=== PATIENT | female | born 1980 | race Caucasian/White ===

== ENCOUNTER 2024-11-25 10:55 | Outpatient (CLI) | payer SELFPAY ==
[2024-11-25 12:21] LABS: Thyroid Stimulating Hormone 0.991 uIU/mL (0.465-4.680)
--- OUTSIDE RECORDS SUMMARY | 2024-11-25 12:35 | XMS_ITS | Encounter Summary ---
Author Organization [facility] Address [address] [place] [address] Care Team Providers Care District Scout Executive Name Role Phone Haresh Villaseñor MD Primary Care Provider [phone] Encounter Details Date Type Department Care Team (Late st Contact Info) Description 04/25/2005 Outpatient Historical [facility]'s [facility] Medical [place] [address] [place] [address] Lexi Velarde MD [address] [place] [address] Social History Tobacco Use Types Packs/Day Years Used Date Smoking Tobacco: Never Assessed Comments Unknown Sex and Gender Information Value Date Recorded Sex Assigned at Not on file 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
--- OUTSIDE RECORDS SUMMARY | 2024-11-25 12:35 | XMS_ITS | Referral Summary ---
Author Organization [address] Address [address] [place] [address] Care Team Providers Care Document Photographer Name Role Phone Unknown, Ciara Primary Care Provider Unavail able Allergies No known active allergies Medications hydrOXYzine (VISTARIL) 25 mg capsuleIndicati ons:Hives of unknown origin Take 1 capsule (25 mg total) by mouth 3 (three) times a day as needed for itching for up to 5 days 15 capsule 05/11/2023 Active Active Problems No known active problems Social History Tobacco Use Types Packs/Day Years Used Date Smoking Tobacco: Never Assessed Comments Unknown Sex and Gender Information Value Date Recorded Sex Assigned at Not on file Legal Sex Female 10:27 AM CDT Gender Identity Not on file Sexual Orientation Not on file Last Filed Vital Signs Vital Sign Reading Time Taken Comments Blood Pressure 118/78 05/11/2023 11:04 AM CDT Pulse 72 05/11/2023 11:04 AM CDT Temperature 36.7 C (98 F) 05/11/2023 11:04 AM CDT Respiratory Rate - - Oxygen Saturation 100% 05/11/2023 11: 04 AM CDT Inhaled Oxygen Concentration - - Weight 76.6 kg (168 lb 12.8 oz) 023 11:04 AM CDT Height 165.1 cm (5' 5 ) 05/11/2023 11:0 4 AM CDT Body Mass Index 28.09 05/11/2023 11:04 AM CDT Plan of Treatment Not on file Care Teams Document Photographer Relationship Specialty Start Date End Date UnknownCiara PCP - General 05/11/23
--- OUTSIDE RECORDS SUMMARY | 2024-11-25 12:35 | XMS_ITS | Encounter Summary ---
Author Organization [facility] Address [address] [place] [address] Care Team Providers Care Visiting Housekeeper Name Role Phone Haresh Villaseñor MD Primary Care Provider [phone] Encounter Details Date Type Department Care Team (Late st Contact Info) Description 08/01/2004 Outpatient Historical [facility]'s [facility] Medical [place] [address] [place] [address] Lexi Velarde MD [address] [place] [address] Social History Tobacco Use Types Packs/Day Years Used Date Smoking Tobacco: Never Assessed Comments Unknown Sex and Gender Information Value Date Recorded Sex Assigned at Not on file 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
--- OUTSIDE RECORDS SUMMARY | 2024-11-25 12:35 | XMS_ITS | Encounter Summary ---
Author Organization [facility] Address [address] [place] [address] Care Team Providers Care Top Lift Compressor Name Role Phone Haresh Villaseñor MD Primary Care Provider [phone] Encounter Details Date Type Department Care Team (Late st Contact Info) Description 04/30/2006 Outpatient Historical [facility]'s [facility] Medical [place] [address] [address] Lexi Velarde MD [address] [address] Social History Tobacco Use Types Packs/Day Years Used Date Smoking Tobacco: Never Assessed Comments Unknown Sex and Gender Information Value Date Recorded Sex Assigned at Not on file Legal Sex Female 4:04 AM MANAGEMENT ASSOCIATE Gender Identity Not on file Sexual Orientation Not on file documented as of this encounter Plan of Treatment Not on file documented as of this encounter Visit Diagnoses Not on filedocumented in this encounter Care Teams Top Lift Compressor Relationship Specialty Start Date End Date Haresh Villaseñor MD [address] [place] [phone] PCP - General 09/09/15 documented as of this encounter
--- OUTSIDE RECORDS SUMMARY | 2024-11-25 12:35 | XMS_ITS | Encounter Summary ---
Author Organization [facility] Address [address] [place] [address] Care Team Providers Care Child Welfare Director Name Role Phone Haresh Villaseñor MD Primary Care Provider [phone] Encounter Details Date Type Department Care Team (Late st Contact Info) Description 11/19/2006 Outpatient Historical [facility] Medical [place] [address] [address] Lexi Velarde MD [address] [address] Social History Tobacco Use Types Packs/Day Years Used Date Smoking Tobacco: Never Assessed Comments Unknown Sex and Gender Information Value Date Recorded Sex Assigned at Not on file 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
--- OUTSIDE RECORDS SUMMARY | 2024-11-25 12:35 | XMS_ITS | Patient Health Summary ---
Author Organization [facility] Address [address] [place] [place] [address] Care Team Providers Care Farm Boss Name Role Phone Haresh Villaseñor MD Primary Care Provider [phone] Note from [facility][note 3],non-owned Affiliates and Associated Physician Practices is amultiple site organization consisting of ambulatory clinics and hospital sitesin [place], [place] and [place]. This disclosure is being madepursuant to the Care Everywhere program and may not contain all information available regarding this patient. Last updated 18.[facility] Allergies No known active allergies Medications Be aware that medications may not be up to date on this document. Always verify current medications with the patient. No known medications Social History Tobacco Use Types Packs/Day Years Used Date Smoking Tobacco: Never Sex and Gender Information Value Date Recorded Sex Assigned at Not on file Gender Identity Not on file Sexual Orientation Not on file Procedures * SKIN TEST PPD - POINT OF CARE(Performed 01/22/2017) Performed for PPD screening test Results * SKIN TEST PPD - POINT OF CARE (01/22/2017 12:05 PM CDT) PPD neg MISCELLANEOUS SAMPLE S / Unknown 01/22/2017 12:05 PM CDT Prabhakar Nice SALESPERSON FLORIST SUPPLIES-ESL TEACHER LAB - POINT OF CARE ORDERABLES Care Teams Farm Boss Relationship Specialty Start Date End Date Haresh Villaseñor MD [address] [place] [address] PCP - General Rheumatology 01/22/17
--- OUTSIDE RECORDS SUMMARY | 2024-11-25 12:35 | XMS_ITS | Encounter Summary ---
Author Organization [facility] Address [address] [place] [address] Care Team Providers Care Ham Doctor Name Role Phone Haresh Villaseñor MD Primary Care Provider [phone] Encounter Details Date Type Department Care Team (Late st Contact Info) Description 05/06/2007 Outpatient Historical [facility] Medical [place] [address] [place] [address] Lexi Velarde MD [address] [place] [address] Social History Tobacco Use Types Packs/Day Years Used Date Smoking Tobacco: Never Assessed Comments Unknown Sex and Gender Information Value Date Recorded Sex Assigned at Not on file Legal Sex Female 4: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
--- OUTSIDE RECORDS SUMMARY | 2024-11-25 12:35 | XMS_ITS | Clinical Summary ---
Author Organization [address] Address [address] [place] [address] Care Team Providers Care Precision Assembler Bench Name Role Phone Unknown, Notinfile Primary Care Provider Unavail able Allergies No [...] on file Sexual Orientation Not on file Obstetrics History Last Filed Vital Signs Vital Sign Reading [...] 05/11/2023 11:04 AM CDT Plan of Treatment Health Maintenance Due Date Last Done Comments Breast Cancer Screening-Mammogram 1978 Cervical Cancer Screening 1978 Colon Cancer Screening-Colonoscopy 1978 Depression Screening 1978 Hepatitis C Screening 1978 Hepatitis B Screening 1996 Regular Well Visit/Exam 18-64 1996 DTaP/Tdap/Td Vaccine (3 - Td or Tdap) 07/24/2021 07/24/2011, 05/08/2011 Covid-19 Vaccine (4 - 2023-2 5 season) 2024 07/30/2021, 01/13/2021, 12/16/2020 Influenza Vaccine (#1) 2024 HPV Vaccines Aged Out No longer eligi ble based on patient's age to complete this topic Pneumococcal vaccine <65 Aged Out No longer eligible based on patient's age to complete this topic Care Teams Precision Assembler Bench Relationship Specialty Start Date End Date Unknown, Notinfile PCP - General 05/11/23
--- OUTSIDE RECORDS SUMMARY | 2024-11-25 12:35 | XMS_ITS | Encounter Summary ---
Author Organization [facility] Address [address] [place] [address] Care Team Providers Care Skinning Machine Feeder Name Role Phone Haresh Villaseñor MD Primary Care Provider [phone] Encounter Details Date Type Department Care Team (Late st Contact Info) Description 08/08/2006 Outpatient Historical [facility] Medical [place] [address] [address] Lexi Velarde MD [address] [address] Social History Tobacco Use Types Packs/Day Years Used Date Smoking Tobacco: Never Assessed Comments Unknown Sex and Gender Information Value Date Recorded Sex Assigned at Not on file Legal Sex Female 4:04 AM VIDEOTAPE EDITOR Gender Identity Not on file Sexual Orientation Not on file documented as of this encounter Plan of Treatment Not on file documented as of this encounter Visit Diagnoses Not on filedocumented in this encounter Care Teams Skinning Machine Feeder Relationship Specialty Start Date End Date Haresh Villaseñor MD [address] [place] [phone] PCP - General 09/09/15 documented as of this encounter
--- OUTSIDE RECORDS SUMMARY | 2024-11-25 12:35 | XMS_ITS | Clinical Summary ---
Author Organization [facility] Address [address] [place] [address] Care Team Providers Care Blanchard Grinder Operator Name Role Phone Unavailable Primary Care Provider Unavailabl e Social History Tobacco Use Types Packs/Day Years Used Date Smoking Tobacco: Never Assessed Comments Unknown Sex and Gender Information Value Date Recorded Sex Assigned at Not on file Legal Sex Female 8:15 PM CDT Gender Identity Not on file Sexual Orientation Not on file Plan of Treatment Health Maintenance Due Date Last Done Comments Cervical Cancer Screening Pa p Smear (Age 30 to 64) Every 3 Years 1978 Colorectal Cancer Screening Colonoscopy (10 Years) 1978 Annual Physical 1981 Hepatitis C 1996 DTaP, Tdap and Td Vaccines ( 1 - Tdap) 1997 Hepatitis B Vaccines (1 of 3 - 19+ 3-dose series) 1997 Cervical Cancer Screening Pa p with HPV Testing (Age 30 to 64) Every 5 Years 2008 Cervical Cancer Screening with HPV 2008 Mammogram Screening 2018 COVID-19 Vaccine (2023-2 5 season) 2024 Influenza Adult (#1) 2024 HPV Vaccines Aged Out No longer eligi ble based on patient's age to complete this topic Meningococcal B Vaccine Aged Out No l onger eligible based on patient's age to complete this topic Meningococcal Vaccine Aged Out No lizz cris eligible based on patient's age to complete this topic Pneumococcal Vaccine: Pediat rics (0 to 5 Years) and At-Risk Patients (6 to 64 Years) Aged Out No longer eligible b ased on patient's age to complete this topic RSV Immunizations Under 20 Months Aged Out No longer eligible based on patient's age to complete this topic
--- OUTSIDE RECORDS SUMMARY | 2024-11-25 12:35 | XMS_ITS | Encounter Summary ---
Author Organization [facility] Address [address] [place] [address] Care Team Providers Care Regional Education Coordinator Name Role Phone Haresh Villaseñor MD Primary Care Provider [phone] Encounter Details Date Type Department Care Team (Late st Contact Info) Description 01/22/2007 Outpatient Historical [facility]'s [facility] Medical [place] [address] [place] [address] Lexi Velarde MD [address] [place] [address] Social History Tobacco Use Types Packs/Day Years Used Date Smoking Tobacco: Never Assessed Comments Unknown Sex and Gender Information Value Date Recorded Sex Assigned at Not on file Legal Sex Female 4: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
--- OUTSIDE RECORDS SUMMARY | 2024-11-25 12:35 | XMS_ITS | Clinical Summary ---
Author Organization [facility] Address [address] [place] [address] Care Team Providers Care Sheetmetal Trades Worker Name Role Phone Haresh Villaseñor MD Primary Care Provider [phone] Source Comments [facility],non-owned Affiliates and Associated Physician Practices is amultiple site organization consisting of ambulatory clinics and hospital sitesin [place], [place], [place] and [place]. This disclosure is being madepursuant to the Care Everywhere program and may not contain all information available regarding this patient. Last updated 18.[facility] Allergies No known active allergies Medications Be [...] Health Maintenance Due Date Last Done Comments COLOGUARD (AGES 45-75) - COL ON CA SCREENING 1978 COLON MONITORING 1978 COLONOSCOPY - COLON CA SCREENING 1978 CT COLONOGRAPHY - COLON CA SCREENING 1978 Colorectal Cancer Screening 1978 FIT - COLON CA SCREENING 1978 FLEX SIG - COLON CA SCREENING 1978 LIPID TESTING 1978 MAMMOGRAM 1978 PAP SMEAR 1978 HIV SCREENING 1993 HEPATITIS C SCREENING 07/29/1996 DTAP/TDAP/TD VACCINES (1 - Tdap) 1997 HEPATITIS B VACCINE (1 of 3 - 19+ 3-dose series) 1997 COVID-19 VACCINE (2023-2 5 season) 2024 INFLUENZA VACCINE (#1) 2024 DEPRESSION SCREENING 09/23/2024 ZOSTER VACCINE (1 of 2) 2028 HIB VACCINE Aged Out No longer eligi ble based on patient's age to complete this topic HPV VACCINE Aged Out No longer eligi ble based on patient's age to complete this topic MENINGOCOCCAL (Group B) VACCINE Aged Out No longer eligible based on patient's age to complete this topic MENINGOCOCCAL VACCINE Aged Out No lizz cris eligible based on patient's age to complete this topic PNEUMOCOCCAL VACCINE Aged Out No long er eligible based on patient's age to complete this topic Care Teams Sheetmetal Trades Worker Relationship Specialty Start Date End Date Haresh Villaseñor MD [address] [place] [address] PCP - General Rheumatology 01/22/17
--- OUTSIDE RECORDS SUMMARY | 2024-11-25 12:35 | XMS_ITS | Encounter Summary ---
Author Organization [facility] Address [address] [place] [address] Care Team Providers Care Clinical Coder Name Role Phone Haresh Villaseñor MD Primary Care Provider [phone] Encounter Details Date Type Department Care Team (Late st Contact Info) Description 05/28/2006 Outpatient Historical [facility]'s 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
--- OUTSIDE RECORDS SUMMARY | 2024-11-25 12:35 | XMS_ITS | Clinical Summary ---
Author Organization [facility] Address [address] [place] [address] Phone Care Team Providers Care Special Distribution Clerk Name Role Phone Haresh Villaseñor MD Primary Care Provider [phone] Allergies No known active allergies Medications MULTIVITAMIN ORAL Take by mouth daily. Active ACETAMINOPHEN (TYLENOL ORAL) Take by mouth. Active escitalopram oxalate (LEXAPRO) 10 mg tablet TAKE ONE TABLET BY MOUTH ONCE DAILY 30 Tablet 3 07/11/2018 Active 10/12, 28, 1 mg-20 mcg (21)/75 mg (7) tablet TAKE 1 TABLET BY MOUTH EVERY DAY 28 Tablet 07/11/2021 Active Active Problems Problem Noted Date Diagnosed Date FH: colon cancer 09/01/2015 S/P LEEP 09/02/2011 Resolved Problems Problem Noted Date Diagnosed Date Resolved Date FAVD 5.22 02/12/2012 07/22/2013 labor GBS-, A+ 09/02/2011 03/25/2012 state, incidental 06/20/2011 0 12/05/2011 Overview (06/20/2011): Some cramping. History of LEEP procedure. Immunizations Immunization Administration Dates Next Due (TDVAX)(7 YRS UP) TETANUS AN D DIPHTHERIA TOXOIDS, ADSORBED (2 LF OF TETANUS TOXOID AND 2 LF OF DIPHTHERIA TOXOID), 0.5ML (PF), IM 07/24/2011 Family History Medical History Relation Name Comments Other Father obesity Other Maternal Grandfather hypogly cemia Stroke Maternal Grandmother Cancer Mother Heart Disease Mother obesity Hypertension Mother Lung Cancer Mother Diabetes Paternal Grandmother Relation Name Status Comments Father Maternal Grandfather Maternal Grandmother Mother Paternal Grandmother Social History Tobacco Use Types Packs/Day Years Used Date Smoking Tobacco: Never Smokeless Tobacco: Never Alcohol Use Standard Drinks/Week Comments Yes 0 (1 standard drink = 0.6 oz pur e alcohol) rarely Comments No Sex and Gender Information Value Date Recorded Sex Assigned at Not on file Legal Sex Female 4:04 AM MAMMALOGY TEACHER Gender Identity Not on file Sexual Orientation Not on file Occupation Industry Job Start Date Job End Date Not on file Not on file Not on file Not on file Last Filed Vital Signs Vital Sign Reading Time Taken Comments Blood Pressure 124/79 04/13/2020 11:13 AM CDT Pulse 69 02/13/2019 9:53 AM CDT Temperature 36.7 C (98 F) 02/14/2012 7:45 AM CDT Respiratory Rate 18 02/14/2012 7:45 AM CDT Oxygen Saturation 96% 02/12/2012 3:16 AM CDT Inhaled Oxygen Concentration - - Weight 72.6 kg (160 lb) 04/13/2020 11:13 AM CDT Height 162.6 cm (5' 4 ) 04/13/2020 11:13 AM CDT Body Mass Index 27.46 04/13/2020 11:13 AM CDT Plan of Treatment Health Maintenance Due Date Last Done Comments HEPATITIS B VACCINES (1 of 3 - 19+ 3-dose series) 1997 DTAP/TDAP/TD VACCINES (1 - Tdap) 07/25/2011 07/24/2011 BREAST CANCER SCREENING 12/10/2018 12/10/2017, 08/06 CERVICAL CANCER SCREENING 04/13/20232019, 02/13/2019, 10/23/2017, Additional history exists COLORECTAL SCREENING 2023 Colorectal Cancer Screening 2023 FIT-DNA Q 3 years 2023 FIT/FOBT Q 1 year 2023 Flex Sig/CT Colonography Q 5 years 2023 INFLUENZA VACCINE (#1) 2024 HPV VACCINES Aged Out No longer eligi ble based on patient's age to complete this topic PNEUMOCOCCAL VACCINE 0-49 YEARS Aged Out No longer eligible based on patient's age to complete this topic Procedures Procedure Name Priority Date/Time Associated Diagnosis Comments CERV/VAG CYTO AGE BASED SCREEN PAP Routine 04/13/2020 12:15 PM CDT Well woman exam with routine gynecological exam Screening for malignant neoplasm of cervix Special screening examination for human papillomavirus (HPV) MAMMO SCREEN BILAT W OR WO CAD Routine 12/10/2017 3:15 PM CDT Well woman exam with routine gynecological exam from Last 3 Months or Most Recently Relevant to Health Maintenance Results * CERV/VAG CYTO AGE BASED SCREEN PAP (04/13/2020 12:15 PM CDT) COMMENT (PAP): SEE COMMENT 0 11:13 AM CDT [facility] Comment: This order for age-based cervical cancer and STI screening follows ACOG guidelines(PB 168, 140, BIZ347). See individual assays for performing site location. CLINICAL INFORMATION Oral contraceptives 04/19/2020 11:13 AM CDT [facility] LAST MENSTRUAL PERIOD INFORMATION NOT PROVIDED 04/19/2020 11:13 AM CDT [facility] PREV PAP: [id number] NIL/NEG HPV 04/19/2020 11:13 AM CDT [facility] PREV BX: INFORMATION NOT PROVIDED 04/19/2020 11:13 AM CDT [facility] SOURCE Endocervix 04/19/2020 11:13 AM CDT [facility] ADEQUACY: SEE COMMENT 04/19/2020 11:13 AM CDT [facility] Comment: Satisfactory for evaluation. Endocervical/transformation zone component present. Age and/or menstrual status not provided PAP INTERP Negative for intraepithelial lesion or malignancy. 04/19/2020 11:13 AM CDT [facility] COMMENT This Pap test has been evaluated with computer assisted technology. 04/19/2020 11:13 AM CDT [facility] ADJUNCT FACULTY FOR MEDICAL TERMINOLOGY: SEE COMMENT 2019 11:13 AM CDT [facility] Comment: KORI JEFFRIES(ASCP) CT screening location: [place] [address] [place] [address] EXPLANATORY NOTE SEE COMMENT 020 11:13 AM CDT [facility] Comment: EXPLANATORY NOTE: The Pap is a screening test for cervical cancer. It is not a diagnostic test and is subject to false negative and false positive results. It is most reliable when a satisfactory sample, regularly obtained, is submitted with relevant clinical findings and history, and when the Pap result is evaluated along with historic and current clinical information. HPV E6/E7 Not Detected Not Detected 04/19/2020 11:13 AM CDT [facility] Comment: This test was performed using the APTIMA HPV Assay ([employer] This assay detects E6/E7 viral messenger RNA (mRNA) from 14 high-risk HPV types (16,18,31,33,35,39,45,51,52,56,58,59,66,68). The analytical performance characteristics of this assay have been determined by [employer]. The modifications have not been cleared or approved by the FDA. This assay has been validated pursuant to the CLIA regulations and is used for clinical purposes. Genital SWAB OF ENDOCERVIX / Unknown Collection / Unknown 04/13/2020 12:15 PM CDT 04/13/2020 5:01 PM CDT Narrative [facility] - 04/19/2020 11:13 AM CDT Performing Organization Information: Site ID: [id number] Name: [facility] Address: [address] [place] [address] Director: Alvin Cook D.O., MPH Site ID: [id number] Name: [facility] Address: [address] [address] Director: Asuncion Santoyo Viry Vance NP PATHOLOGY/CYTOLOGY ORDERAB LES Final Result [facility] [phone] * MAMMO SCREEN BILAT W OR WO CAD (12/10/2017 3:15 PM CDT) Anatomical Region Laterality Modality Breast Bilateral Mammography Narrative 12/10/2017 3:38 PM CDT Bilateral digital screening mammogram with computer assisted diagnosis History: Annual screening exam. Findings: A bilateral screening mammogram was performed. Comparison is made to : 08/06/2014 The breast parenchyma is heterogeneously dense which can obscure small masses. No new masses, suspicious calcifications, or areas of asymmetry or distortion are identified. CAD was utilized. Impression: Negative screening mammogram. Recommendation: Routine annual follow-up Overall Assessment: Birads Category 1: Negative Lexi Velarde MD MAMMO ORDERABLES Final Result from Last 3 Months or Most Recently Relevant to Health Maintenance Advance Directives For more information, please contact: [phone] * Full Code (Latest Code Status on File) Date Activated Date Inactivated Comments 02/12/2012 8:40 AM 02/14/2012 1:52 PM * Full Code Date Activated Date Inactivated Comments 02/12/2012 2:42 AM 02/12/2012 8:40 AM Care Teams Special Distribution Clerk Relationship Specialty Start Date End Date Haresh Villaseñor MD [address] [facility] [address] [place] [address] PCP - General 09/09/15
--- OUTSIDE RECORDS SUMMARY | 2024-11-25 12:35 | XMS_ITS | Encounter Summary ---
Author Organization [facility] Address [address] [place] [address] Care Team Providers Care Reliability Specialist Name Role Phone Haresh Villaseñor MD Primary Care Provider [phone] Encounter Details Date Type Department Care Team (Late st Contact Info) Description 04/22/2006 Outpatient Historical [facility] Richard Cabrera MD [address] [facility] [place] [address] Er, Authorized P NO ADDRESS ON FILE Major Depressive Disorder, Single Episode, Unspecified (Primary Dx) Social History Tobacco Use Types Packs/Day Years Used Date Smoking Tobacco: Never Assessed Comments Unknown Sex and Gender Information Value Date Recorded Sex Assigned at Not on file 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
--- OUTSIDE RECORDS SUMMARY | 2024-11-25 12:35 | XMS_ITS | Encounter Summary ---
Author Organization [facility] Address [address] [place] [address] Care Team Providers Care Home Health Caregiver Name Role Phone Haresh Villaseñor MD Primary Care Provider [phone] Encounter Details Date Type Department Care Team (Late st Contact Info) Description 06/12/2006 Outpatient Historical [facility] [address] [place] [address] [address] Lexi Velarde MD [address] [address] Social History Tobacco Use Types Packs/Day Years Used Date Smoking Tobacco: Never Assessed Comments Unknown Sex and Gender Information Value Date Recorded Sex Assigned at Not on file 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
--- OUTSIDE RECORDS SUMMARY | 2024-11-25 12:35 | XMS_ITS | Encounter Summary ---
Author Organization [facility] Address [address] [place] [address] Care Team Providers Care Sales And Merchandising Associate Name Role Phone Haresh Villaseñor MD Primary Care Provider [phone] Encounter Details Date Type Department Care Team (Late st Contact Info) Description 03/14/2004 Outpatient Historical [facility] [address] [address] [place] [address] Lexi Velarde MD [address] [place] [address] Social History Tobacco Use Types Packs/Day Years Used Date Smoking Tobacco: Never Assessed Comments Unknown Sex and Gender Information Value Date Recorded Sex Assigned at Not on file 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
--- OUTSIDE RECORDS SUMMARY | 2024-11-25 12:35 | XMS_ITS | Referral Summary ---
Author Organization [facility] Address [address] [place] [address] Care Team Providers Care Nuclear Test Technician Name Role Phone Haresh Villaseñor MD Primary Care Provider [phone] Source Comments [facility] [employer],non-owned Affiliates and Associated Physician Practices is [facility] organization consisting of ambulatory clinics and hospital sitesin [place], [place], [place] and [place]. This disclosure is being madepursuant to the Care Everywhere program and may not contain all information available regarding this patient. Last updated 18.[facility] Allergies No known active allergies Medications Be [...] Orientation Not on file Plan of Treatment Not on file Administered Medications Care Teams Nuclear Test Technician Relationship Specialty Start Date End Date Haresh Villaseñor MD [address] [facility] [place] [address] PCP - General Rheumatology 01/22/17
== END 2024-11-25 10:56 | disposition home or self-care (01) ==
PROVIDERS: Visit Provider Student in an Organized Health Care Education/Training Program
DX: N95.1 Menopausal and female climacteric states (principal)
CPT/HCPCS: 36415; 84443